=== PATIENT | male | born 1995 | race Caucasian/White ===

== ENCOUNTER 2023-09-16 08:21 | Emergency (ER) | payer SELFPAY ==
[2023-09-16 08:23] VITALS: BP 140/119; BP 200/168; PULSE 110; PULSE 90; RESP 22; RESP 26; TEMP 37.2; O2SAT 91; O2SAT 97
[2023-09-16 08:26] VITALS: BMI 22.3
--- NOTE | 2023-09-16 08:33 | EKG12_ITS ---
Test Reason : FLANK PAIN Blood Pressure : / mmHG Vent. Rate : 091 BPM Atrial Rate : 091 BPM P-R Int : 164 ms QRS Dur : 090 ms QT Int : 374 ms P-R-T Axes : 080 078 073 degrees QTc Int : 460 ms Sinus rhythm with Premature atrial complexes Otherwise normal ECG Confirmed by Juan C Clark ([id number]), health editor ALAN URBANO ([id number]) on 09/17/2023 9:57:34 AM Referred By: Confirmed By:Juan C Clark
--- NOTE | 2023-09-16 08:37 | NURSING ---
NO OLD EKGS
--- NOTE | 2023-09-16 08:39 | CT_ITS ---
STUDY: CT ABDOMEN AND PELVIS WITH CONTRAST REASON FOR EXAM: Male, 27 years old. Left flank pain RADIATION DOSAGE (If Supplied By Facility): CTDIvol = ( 8.22 ) mGy, DLP = ( 601.69 ) mGycm TECHNIQUE: Transaxial images were obtained from the dome of the diaphragm to the symphysis pubis without oral contrast. IV 100mL Isovue-370 was administered. Sagittal and coronal images were reconstructed. Individualized dose optimization techniques were used for this CT. COMPARISON: None. FINDINGS: The visualized lung bases are unremarkable. The visualized portions of the heart are within normal limits. Normal liver. Normal gallbladder and extrahepatic biliary system. Normal spleen. Normal pancreas. Normal bilateral adrenal glands. Normal right kidney. Mild degree of left hydronephrosis and proximal left hydroureter. There is a small hiatal hernia. Normal small intestine. Normal colon. The appendix is visualized and appears normal. Normal abdominal aorta. Normal inferior vena cava. Normal retroperitoneum. 2 tiny 3 mm calculi are seen at the base of the bladder on the left side. These most likely represent recently passed left ureteral stone. There is prominence of the seminal vesicles bilaterally. Normal abdominal wall. There is straightening of the normal lumbar lordosis. There is a 9.5 mm x 8.9 mm well-defined cystic structure in the superior aspect of the body of the L5 vertebrae. CT/Abdomen/Pelvis W IV Cont ONLY IMPRESSION: Mild left hydronephrosis and proximal left hydroureter with 2 tiny calculi seen at the base of the bladder on the left side suggests a recently passed left ureteral calculi. Enlargement of the seminal vesicles bilaterally. Electronically Signed: Charles Garcia MD at 9:56 EDT ,
--- NOTE | 2023-09-16 08:40 | EX.ED.GUMALE ---
HPI History of Present Illness Chief Complaint: Flank Pain Narrative Narrative: 27-year-old male presenting with left flank pain. Patient states this started abruptly about an hour ago. He describes it as sharp and stabbing. It seems to come in waves. He had some nausea with it. He is having trouble finding a position of comfort. He is never experienced this kind of pain before. Denies dysuria or hematuria. Does note that he felt like he was having pain radiating into his inguinal region and penis yesterday. He did not have flank pain yesterday. No history of kidney stones. No history of surgeries. No fevers or chills. PFSH PFSH Home Medications ?Medication ?Instructions ?Recorded ?Last Taken ?Type hydrocodone-acetaminophen 5-325mg 1 tab PO Q6H PRN PRN Pain 3 days 09/16/23 Unknown Rx 5mg-325mg #10 TABLETS ondansetron 4 mg disintegrating 4 mg PO Q8H PRN PRN Nausea #10 tabs 09/16/23 Unknown Rx tablet Allergy/AdvReac Type Severity Reaction Status Date / Time bee pollen Allergy SWELLING Verified 09/16/23 08:24 Social History Smoking Status: Current every day smoker tobacco type: cigarettes ROS ROS ED Constitutional Constitutional ED: Denies chills, fever(s) or sweats Eyes Eyes: Denies blurry vision or change in vision ENT ENT ED: Denies ear pain or sore throat Cardiovascular Cardiovascular: Denies chest pain, palpitations or racing heartbeat Respiratory/Chest Respiratory/Chest: Denies cough, dyspnea or sputum Gastrointestinal Gastrointestinal: Reports abdominal pain and nausea; Denies constipation, diarrhea or vomiting Genitourinary Genitourinary ED: Denies dysuria, hematuria or urinary frequency Musculoskeletal Musculoskeletal: Reports back pain; Denies arthralgias, myalgias or neck pain Integumentary Denies abscess, Abrasions or rash Neurologic Neurologic: Denies headache(s), paresthesias or weakness Psychiatric Psychiatric: Denies anxiety, depression, suicidal ideation or suicidal thoughts Endocrine Endocrinology: Denies polydipsia or polyuria EXAM Physical Exam Const Vital Signs: 09/16/23 08:23 09/16/23 08:23 09/16/23 10:00 Temperature 99 F Temperature Source Temporal Pulse Rate 110 H 90 81 Respiratory Rate 22 H 26 H 16 Blood Pressure 200/168 H 140/119 H 138/78 H Blood Pressure Mean 178 126 98 Pulse Ox 91 97 98 Oxygen Delivery Method Room Air Room Air Room Air 09/16/23 11:07 Temperature 98 F Temperature Source Pulse Rate 77 Respiratory Rate 18 Blood Pressure 138/78 H Blood Pressure Mean 98 Pulse Ox 99 Oxygen Delivery Method Positive well nourished General Appearance ED: Negative for pallor HEENT Reports moist mucous membranes Eyes PERRL and EOMs intact bilaterally Resp normal respiratory effort Auscultation: Negative for rales, rhonchi or wheezes Cardio regular rate and regular rhythm GI GI Narrative: Tenderness palpation left lower quadrant. Bladder / Kidney Exam: CVA tenderness left Neuro oriented x3 and CN's II-XII intact bilaterally Sensorium / Orientation: alert Motor Exam: strength 5/5 throughout Psych Attitude: agitated Mood & Affect: anxious Thought Process: normal thought process Thought Content: normal thought content Skin General Skin Exam: Negative for jaundice or pallor MDM MDM MDM Narrative Medical decision making narrative: 27-year-old male with left flank pain. Patient presenting with right flank pain. Differential includes colitis, diverticulitis, pancreatitis, constipation, UTI, pyelonephritis, renal calculi, ureteral calculi, bowel obstruction, malignancy, dehydration, electrolyte abnormalities. Patient medicated with morphine, Zofran, Toradol. CBC will be obtained to assess white blood cell count, hemoglobin, platelets. BMP to assess renal function, electrolytes, glucose. Urinalysis to assess for UTI or occult blood. CT of the abdomen pelvis without contrast will be obtained out of likely that this is a kidney stone. CBC shows normal white blood cell count of 7.6. Hemoglobin 5. Platelets normal at 257. Renal function electrolytes within normal limits. Urinalysis negative for infection and occult blood. CT of the abdomen pelvis without contrast was obtained and shows a tiny calculus in the bladder which is likely recently passed. Patient is comfortable after being medicated. I did give him prescription for [place] and Zofran as it is still experiencing some pain. I given follow-up with urology however the patient does not live locally and likely will follow-up with somebody in his hometown. Impression: 1. Kidney stone/passed Lab Data Attestation: I reviewed the patient's lab results. Labs: Laboratory Results - last 24 hr 09/16/23 09/16/23 08:50 11:04 WBC 7.6 RBC 5.17 Hgb 15.5 Hct 44.4 MCV 85.9 MCH 30.0 MCHC 34.9 RDW Std Deviation 38.1 RDW Coeff of Harshal 12.0 Plt Count 257 MPV 9.6 Immature Gran % (Auto) 0.100 Neut % (Auto) 34.3 L Lymph % (Auto) 52.3 H Hanson % (Auto) 9.3 Eos % (Auto) 3.2 Baso % (Auto) 0.8 Absolute Neuts (auto) 2.6 Absolute Lymphs (auto) 3.95 Nucleated RBC % 0 Sodium 140 Potassium 3.9 Chloride 111 H Carbon Dioxide 21.0 Anion Gap 8 BUN 17 Creatinine 0.96 Est GFR (MDRD) Af Amer 123 Est GFR (MDRD) Non-Af 101 BUN/Creatinine Ratio 17.8 Glucose 117 H Calcium 8.4 L Urine Color Yellow Urine Clarity Clear Urine pH 6.5 Ur Specific [place] 1.010 Urine Protein 15 H Urine Glucose (UA) 1000 H Urine Ketones Negative Urine Occult Blood Negative Urine Nitrite Negative Urine Bilirubin Negative Urine Urobilinogen Normal Ur Leukocyte Esterase Negative Urine RBC 0 SEEN Urine WBC 0 SEEN Ur Squamous Epith Cells 0 SEEN Urine Bacteria 0 SEEN Urine Mucus 0 SEEN Radiography Diagnostic Testing: Clinical Impression(s) from Imaging Studies Abdomen/Pelvis CT 09/16/23 08:39 IMPRESSION: Mild left hydronephrosis and proximal left hydroureter with 2 tiny calculi seen at the base of the bladder on the left side suggests a recently passed left ureteral calculi. Enlargement of the seminal vesicles bilaterally. Electronically Signed: Charles Garcia MD at 9:56 EDT , Discharge Plan Triage Chief Complaint: Flank Pain ED Provider: Paulie Salmeron Dx/Rx/DC Orders Instructions: ED Kidney Stone with Pain Prescriptions: New hydrocodone-acetaminophen 5-325 mg tablet 1 tab PO Q6H PRN PRN (Reason: Pain) 3 Days Qty: 10 0RF ondansetron 4 mg tablet,disintegrating 4 mg PO Q8H PRN PRN (Reason: Nausea) Qty: 10 0RF Primary Care Provider: Care Physician,No Primary Referrals: Yoni Santamaria MD [Med Staff - Active Staff] - 3-5 Days Care Physician,No Primary [Primary Care Provider] - Print Language: Swiss Disposition Disposition: Home, Self Care Discharge Date/Time: 09/16/23 11:09
[2023-09-16] MEDS: Ondansetron 4 MG/2 ML Vial IV (08:43)
[2023-09-16] MEDS: Ketorolac 15 MG/ML Vial IV (08:44)
[2023-09-16] MEDS: Morphine 4 MG/ML Syringe IV (08:45)
[2023-09-16 09:07] LABS: Absolute Lymphocyte Count 3.95 X10^3/uL (0.83-4.51); Absolute Neutrophil Count 2.6 X10^3/uL (2.0-7.7); Basophil# 0.06 X10^3/uL; Basophil% 0.8 % (0-1); Eosinophil# 0.24 X10^3/uL; Eosinophils% 3.2 % (0-5); Hematocrit 44.4 % (40-54); Hemoglobin 15.5 g/dL (13.0-16.5); Lymphocyte # 3.95 X10^3/ul (0.83-4.51); Lymphocyte % 52.3 % (19-41); Mean Corp Hgb Conc 34.9 g/dL (32-36); Mean Corpuscular Volume 85.9 fL (80-94); Mean Platelet Vol. 9.6 fl (6.2-12.0); Monocyte% 9.3 % (0-10); NRBC Flagged by Analyzer 0 % (0-5); Neutrophil # 2.59 X10^3/uL (2.7-7.7); Neutrophil % 34.3 % (47-70); Platelet Count 257 K/mm3 (150-450); RBC Distribution Width SD 38.1 fl (35.1-43.9); Red Blood Count 5.17 M/mm3 (4.6-6.2); White Blood Count 7.6 K/mm3 (4.4-11.0)
[2023-09-16 09:15] LABS: Anion Gap 8 (5-15); BUN 17 mg/dL (7-18); BUN/Creat Ratio 17.8 RATIO (10-20); Calcium,Total 8.4 mg/dL (8.5-10.1); Chloride 111 mmol/L (98-107); Creatinine, Serum 0.96 mg/dL (0.70-1.30); EST Glomerular Filtration Rate 101 mL/min (>60); Est Glom Filt Rate - Afr Amer 123 mL/min (>60); Glucose 117 mg/dL (74-106); Potassium 3.9 mmol/L (3.5-5.1); Sodium Level 140 mmol/L (136-145)
[2023-09-16] MEDS: HYDROmorphone 0.5 MG/0.5 ML SYRINGE IV (09:34)
[2023-09-16] MEDS: proMETHazine 25 MG/ML Syringe 12.5 MG IM (09:34)
[2023-09-16 10:00] VITALS: BP 138/78; PULSE 81; RESP 16; O2SAT 98
[2023-09-16 11:07] VITALS: BP 138/78; PULSE 77; RESP 18; TEMP 36.6; O2SAT 99
[2023-09-16 11:10] LABS: Bacteria 0 SEEN /hpf (None Seen); Mucous, Urine 0 SEEN /hpf (<or=2+); Red Blood Cells-Urine 0 SEEN /hpf (0-5); Squamous Epithelial Cells - UA 0 SEEN /hpf (0-5); White Blood Cells 0 SEEN /hpf (0-5)
[2023-09-16 11:20] LABS: Color, Urine Yellow (Yellow); Glucose, Dipstick 1000 mg/dl (Normal); Ketone-Dipstick Negative (Negative); Leukocyte Esterase-Dipstick Negative /ul (Negative); Nitrite-Dipstick Negative (Negative); Occult Blood-Urine Negative /ul (Negative); Protein-Dipstick 15 mg/dl (Negative); Urine Bilirubin Dipstick Negative (Negative); Urine Clarity Clear (Clear); Urine Urobilinogen Normal (Normal); Urine pH 6.5 (5.0 - 8.0)
== END 2023-09-16 11:09 | disposition home or self-care (01) ==
PROVIDERS: Emergency Provider Student in an Organized Health Care Education/Training Program; Visit Provider Student in an Organized Health Care Education/Training Program
DX: R10.9 Unspecified abdominal pain (principal); F17.210 Nicotine dependence, cigarettes, uncomplicated; N13.4 Hydroureter; N13.30 Unspecified hydronephrosis; Z87.442 Personal history of urinary calculi
CPT/HCPCS: 74177; 80048; 81001; 85025; 93005; 96372; 96374; 96375; 99282; J7030; Q9967; A4216; J2405